=== PATIENT | female | born 1995 | race Caucasian/White ===

== ENCOUNTER 2017-04-28 15:29 | Emergency (ER) | payer MEDICAID, OTHER ==
[~2017-04-28] VITALS: Ht 154.9 cm; Wt 71.2 kg
[~2017-04-28 15:29] MED LIST: CYCL-319 PO; IBUP800T25 PO
[2017-04-28 15:32] VITALS: Ht 154.9 cm; Wt 71.2 kg
[2017-04-28] MEDS ORDERED: DIPHENHYDRAMINE 50 MG INJ IV ONE (17:00)
[2017-04-28] MEDS ORDERED: SOD CHLORIDE 0.9% 1,000 ML IV ONE (17:00)
[2017-04-28] MEDS ORDERED: FAMOTIDINE 20 MG TAB PO ONE (17:00)
[2017-04-28] MEDS ORDERED: METHYLPREDNISOLONE 125 MG INJ IV ONE (17:00)
[2017-04-28] MEDS ORDERED: BEN25 PO (18:54)
[2017-04-28] MEDS ORDERED: SULF1TAB31 PO (18:56)
[2017-04-28] MEDS ORDERED: FLUC150T17 PO (19:00)
--- NOTE | 2017-04-28 19:16 | ERD ---
ER Documentation Chief Complaint Date/Time DATE: 04/28/17 TIME: 19:13 Chief Complaint RASH ON BODY AFTER TAKING ANTIBIOTIC HPI This is a 22-year-old female presents to the ER with a rash that occurred all over her body after she took amoxicillin and erythromycin. Patient was taken this medication prescribed to her by a dentist after having a root canal. Patient has not had any fevers or chills. She does not have any swelling. Patient states that her lips were swollen earlier this morning, however swelling has decreased. Patient denies any chest pain or shortness of breath. She denies any difficulty in swallowing. Rash is located all over her body and is very itchy. ROS 12 point review of systems was done, all negative except per HPI. Medications Home Meds Active Scripts Fluconazole* (Diflucan*) 150 Mg Tablet, 150 MG PO ONCE, #1 TAB Prov:CARIN YOO 04/28/17 Sulfamethoxazole/Trimethoprim* (Bactrim Ds* Tablet) 1 Each Tablet, 1 TAB PO BID , #14 TAB Prov:CARIN YOO 04/28/17 Diphenhydramine Hcl* (Benadryl*) 25 Mg Cap, 25 MG PO Q6, #30 CAP Prov:CARIN YOO 04/28/17 Cyclobenzaprine Hcl* (Cyclobenzaprine Hcl*) 10 Mg Tablet, 10 MG PO TID, #15 TAB Prov:MONICA BANEGAS CAREER SERVICES REPRESENTATIVE 12/30/15 Ibuprofen* (Motrin*) 800 Mg Tab, 800 MG PO Q6, #15 TAB Prov:MONICA BANEGAS CAREER SERVICES REPRESENTATIVE 12/30/15 Allergies Allergies: Coded Allergies: amoxicillin (Verified Allergy, Mild, RASH SWELLING LIPS, 04/28/17) PMhx/Soc Medical and Surgical Hx: pt denies Medical Hx, pt denies Surgical Hx History of Surgery: No Anesthesia Reaction: No Hx Neurological Disorder: No Hx Respiratory Disorders: No Hx Cardiac Disorders: No Hx Psychiatric Problems: No Hx Miscellaneous Medical Probl: No Hx Alcohol Use: No Hx Substance Use: No Hx Tobacco Use: No Smoking Status: Never smoker Physical Exam Vitals Vital Signs Date Time Temp Pulse Resp B/P Pulse Ox O2 Delivery O2 Flow Rate FiO2 04/28/17 15:32 98.6 90 18 123/77 99 Physical Exam GENERAL: The patient is well developed and appropriate for usual state of health , in no apparent distress. HEENT: Atraumatic. Patient's lips are red and slightly swollen. There is no swelling of the tongue, eyes. CHEST: Clear to auscultation bilaterally. There are no rales, wheezes or rhonchi. HEART: Regular rate and rhythm. No murmurs, clicks, rubs or gallops. NEURO: Alert and oriented. SKIN: Macular itchy rash all over body. Results 24 hrs Current Medications Medications (Trade) Dose Ordered Sig/[place] Route PRN Reason Start Time Stop Time Status Last Admin Dose Admin Sodium Chloride (NS) 1,000 ml @ 1,000 mls/hr Q1H ONCE IV 04/28/17 17:00 04/28/17 17:59 DC 04/28/17 17:16 Methylprednisolone Sodium Succinate (Solu-Medrol) 125 mg ONCE ONCE IV 04/28/17 17:00 04/28/17 17:01 DC 04/28/17 17:16 Diphenhydramine HCl (Benadryl) 25 mg ONCE ONCE IV 04/28/17 17:00 04/28/17 17:01 DC 04/28/17 17:16 Famotidine (Pepcid) 20 mg ONCE ONCE PO 04/28/17 17:00 04/28/17 17:01 DC 04/28/17 17:16 Procedures/MDM Differential Diagnosis: dermatitis, allergic urticaria, viral exanthem, insect bite, fungal infectio ,viral exanthem, hand foot mouth disease, , impetigo, cellulitis, abscess, weston lacy syndrome, meningocemia, necrotizing fasciitis. This is a 22-year-old female presents to the ER after developing a rash from an antibiotic. Patient was given IV Solu-Medrol, fluids, Benadryl, Pepcid in the ER and felt significantly better. Patient was not hypoxic in any respiratory distress. She did have slight swelling of her lips which was improved after treatment in the ER. Suspicion for severe anaphylactic reaction is low. Patient was told to discontinue antibiotics and she was given Bactrim instead. Patient needs to follow-up with her primary care doctor within 1-2 days return to ER sooner if symptoms worsen. My medical decision making shared with the patient she understands and agrees with plan. Departure Diagnosis: Primary Impression: Allergic reaction Condition: Stable Patient Instructions: Allergic Reaction, Drug Additional Instructions: Call your primary care doctor TOMORROW for an appointment during the next 1-2 days.See the doctor sooner or return here if your condition worsens before your appointment time. CARIN YOO Apr 28, 2017 19:16
[2017-04-28 19:26] VITALS: BP 118/68; PULSE 62; RESP 18; TEMP 98.6
== END 2017-04-28 19:28 | disposition home or self-care (01) ==
LOC: FTE 15:29
DX: R21 Rash and other nonspecific skin eruption (principal)
CPT/HCPCS: 96374; 96375; J1200; J2930; J7030; Z7502; Z7610

== ENCOUNTER 2017-10-29 16:14 | Emergency (ER) | END 2017-10-29 21:39 | disposition home or self-care (01) ==

== ENCOUNTER 2018-01-05 13:05 | Emergency (ER) | END 2018-01-05 14:15 | disposition home or self-care (01) ==

== ENCOUNTER 2018-01-18 21:24 | Emergency (ER) | END 2018-01-19 21:27 | disposition home or self-care (01) ==

== ENCOUNTER 2018-03-07 16:22 | Emergency (ER) | END 2018-03-07 18:23 | disposition home or self-care (01) ==

== ENCOUNTER 2018-06-10 18:12 | Emergency (ER) | END 2018-06-10 23:12 | disposition home or self-care (01) ==

== ENCOUNTER → 2018-07-24 | Emergency (ER) | END | disposition home or self-care (01) ==